=== PATIENT | female | born 1985 | race African-American/Black ===

== ENCOUNTER 2021-05-20 15:43 | Observation (INO) | payer MEDICAID, SELFPAY ==
--- NOTE | ~2021-05-20 | MR_ITS ---
EXAMINATION: MR hip RT wo con DATE: 05/21/2021 07:40 INDICATION: Right hip pain TECHNIQUE: Magnetic resonance imaging (MRI) of the right hip was performed without intravenous contr ast. Sequences included full-field axial PD-weighted FS FSE and T1-weighted FSE, coronal of the pelvi s with PD-weighted FS FSE, T2-weighted FSE and T1-weighted FSE, small field of view of the right hip with axial PD-weighted FS FSE, sagittal PD-weighted FS FSE, coronal PD-weighted FS FSE and coronal T2 weighted FSE. Additional radial T1-weighted FGR oriented orthogonal to the acetabular rim were obt ained for evaluation of the labrum. COMPARISON: CT dated 05/20/2021 FINDINGS: Bones/labrum/cartilage: Alignment is normal. No fracture, avascular necrosis or pathologic marrow replacing process. Smooth partial-thickness cleft at the base of the anterior left acetabular labrum most likely a normal subla bral sulcus, typical at this location but differential would include a small labral tear. Mild osteoa rthritis of the right hip with mild nonuniform partial thickness cartilage loss most prominent at the superior aspect of the joint space with mild subarticular edema at the superior acetabulum. Fluid: Symmetric physiologic amount of fluid within both hip joints. Soft tissues: Normal and symmetric muscle bulk and signal in the pelvis and visualized proximal thighs. The iliopso as, gluteal and proximal hamstring tendons are normal. 2.6 cm left ovarian cyst/follicle. A couple hy pointense uterine fibroids measuring 3.8 cm in the fundus and the smaller 2.1 cm subserosal fibroid a rising from the lower uterine segment. There is a small amount of free fluid in the pelvis with typic al simple high T2 fluid signal anteriorly but with heterogeneous decreased T2 and increased T1 signal in the cul-de-sac consistent with small amount of hemoperitoneum. No pathologically enlarged pelvic/ inguinal lymphadenopathy. IMPRESSION: 1. Mild right hip osteoarthritis with normal sulcus versus less likely small tear at the anterior lab rum. 2. Small amount of hemoperitoneum in the cul-de-sac which is of indeterminate etiology. 3. 2.6 cm left ovarian cyst/follicle. 4. Fibroid uterus. Reviewed, dictated and finalized at location A. IMPRESSION: 1. Mild right hip osteoarthritis with normal sulcus versus less likely small te ar at the anterior labrum. 2. Small amount of hemoperitoneum in the cul-de-sac which is of indeterminate e tiology. 3. 2.6 cm left ovarian cyst/follicle. 4. Fibroid uterus.
--- NOTE | ~2021-05-20 | CT_ITS ---
EXAMINATION: CT abdomen pelvis wo con DATE: 05/20/2021 19:25 INDICATION: Right abdominal pain. TECHNIQUE: Computed tomography (CT) of the abdomen and pelvis was performed without intravenous contr ast. Automated exposure control and iterative reconstruction technique were employed. The dose-length product was 243.86 mGy-cm. COMPARISON: None. FINDINGS: The visualized portions of the lung bases are clear without pneumonia or pleural effusion. The heart size is normal. No pericardial effusion. There is diffuse hepatic steatosis. The gallbladde r, spleen, pancreas, and adrenal glands are normal. There is a 2.3 cm cyst in right kidney. Left kidn ey is normal. There is no urolithiasis. There is a 2.7 cm dominant follicle in left ovary. There are no dilated loops of bowel. The appendix is normal. There are no pathologically enlarged lymph nodes. There is no free intraperitoneal fluid. There is mild osteoarthritis of the hips. There is mild lumba r spondylosis. IMPRESSION: 1. Diffuse hepatic steatosis. Reviewed, dictated and finalized at location A.
[2021-05-20 16:16] VITALS: BP 104/58; PULSE 76; RESP 16; TEMP 36.3; O2SAT 100
--- NOTE | 2021-05-20 16:34 | ED.GENADULT ---
HPI - General Adult General Chief complaint: Fall Stated complaint: fall 4-5 days ago, RT sided abd pain Time Seen by Provider: 05/20/21 16:22 Source: RN notes reviewed History of Present Illness HPI narrative: Patient presents emergency department from home for right-sided abdominal pain and hip pain. Patient states pain began when she fell out of bed approximately 1 week. States since that time she has had continued pain in her right lower abdomen states pain is worse with trying to ambulate or move move the right hip or stand up straight as well as pressing in the right lower abdomen pain is described as aching in nature she denies striking her head or any loss of consciousness she denies any chest pain shortness of breath nausea vomiting diarrhea or any other symptoms she states she not take any pain medication today. Patient states since the fall she has not been able to put any pressure onto the right hip Related Data Home Medications Medication Instructions Recorded Confirmed carbamazepine 400 mg PO BID 05/20/21 05/20/21 lisinopril-hydrochlorothiazide 1.5 tablet PO DAILY 05/20/21 05/20/21 tizanidine 4 mg PO TID PRN 05/20/21 05/20/21 Allergies Allergy/AdvReac Type Severity Reaction Status Date / Time amoxicillin Allergy Anaphylaxis Verified 05/20/21 23:35 iodine Allergy Anaphylaxis Verified 05/20/21 23:35 latex Allergy Rash Verified 05/20/21 23:35 Penicillins Allergy Anaphylaxis Verified 05/20/21 23:35 Review of Systems Review of Systems: Gen.: Denies fevers or chills Eyes: Denies eye pain or visual change ENT: Denies congestion Respiratory: Denies shortness of breath or cough CV: Denies chest pain or palpitations GI: See HPI Musculoskeletal: Denies back pain or muscle pain Neuro: Denies numbness, tingling, weakness or focal weakness Skin: Denies rash Except as documented, all other systems reviewed and negative [facility] [place] Past Medical History Medical History (Updated 05/21/21 @ 01:05 by Clarence Ko DO) Alcohol abuse Seizures Family History Family History (Updated 05/20/21 @ 23:47 by Yaritza Tiwari RN) Grandparent Cancer Other Hypertension Social History Social History (Updated 05/20/21 @ 23:18 by Maryuri Gutierrez DO) Social History: Primary care physician: Dr. Milo Haq Smoking status: Current every day smoker Smokeless tobacco user: chewing tobacco Alcohol intake: current Drinks per week: 3 Substance use: current Substance use type: crack/cocaine Spiritual care concerns: No Exam Narrative: APPEARANCE: No acute distress, nontoxic, resting in bed HEENT: Normocephalic, atraumatic, OMM RESPIRATORY: No respiratory distress, clear to auscultation bilaterally with no rhonchi wheezing or rales CARDIOVASCULAR: RRR s murmur ABDOMINAL: Soft nondistended diffusely tender to palpation with increased tenderness in the right lower quadrant no rebound or guarding MUSCULOSKELETAl: Moves all extremities. No clubbing, cyanosis or edema. Tender to palpation of the right anterior and lateral right hip pain with any movement of the right hip no tenderness of the right knee or ankle dorsalis pedis pulse 2+ neurovascular intact NEURO: Awake and alert x 4. Following commands, speech normal, no focal deficits SKIN:: Warm, dry. Normal Color PSYCHIATRIC: Normal affect/mood Course Course Emergency Course: Attempted to get patient up and ambulate still unable to place any weight on the right hip Patient initially been a difficult stick and refused any further IV lab draw as her CT scan was without contrast because of iodine allergy no further lab redraw as had occurred however after the patient had continued pain unable to walk I discussed with the patient we did draw further lab work at this time it was discovered the patient was hypoglycemic she states she had eaten today she was awake and alert the patient was given food in the emergency department and repeat lab continue to sh
[2021-05-20 18:35] LABS: Basophils Absolute Auto 0.1 K/mm3 (0.0-0.1); Basophils Percent Auto 0.7 % (0.2-1.2); Hematocrit 41.9 % (37.0-47.0); Hemoglobin 14.2 g/dL (12.0-15.0); Immature Granulocyte Absolute 0.02 K/mm3 (0.00-0.031); Immature Granulocyte Percent A 0.2 % (0-0.5); Lymphocytes Absolute Auto 1.07 K/mm3 (0.9-3.2); Lymphocytes Percent Auto 11.8 % (18.3-44.2); Mean Corpuscular HGB Conc 33.9 g/dl (32-36); Mean Corpuscular Hemoglobin 32.6 pg (26-34); Mean Corpuscular Volume 96.1 fl (80-100); Mean Platelet Volume 12.2 fl (7.4-10.4); Monocytes Absolute Auto 0.3 K/mm3 (0.1-0.6); Monocytes Percent Auto 3.5 % (2.6-8.5); Neutrophils Absolute Auto 7.6 K/mm3 (1.3-6.7); Neutrophils Percent Auto 83.8 % (45.5-73.1); Platelet Count Result 166 k/mm3 (150-375); Red Blood Count 4.36 M/mm3 (4.2-5.4); Red Cell Distribution Width 14.7 % (11.5-14.5); White Blood Count 9.1 K/mm3 (4.5-10.0)
[2021-05-20] MEDS: SODIUM CHLORIDE 0.9% IV 1,000 ML 999 ML IV CONT ×2 (18:40→21:42)
--- NOTE | 2021-05-20 19:06 | PC.NURSE ---
Pt refused redraw of chemistry and coag bloodwork after hemolysis rejection. Dr. Ko made aware
[2021-05-20 19:12] LABS: Add Urine Microscopic? YES; Appearance Urine Clear (Clear); Bilirubin Urine Negative (Negative); Blood Urine Negative (Negative); Color Urine Yellow (Yellow); Glucose Urine UA Negative (Negative); Ketones Urine 2+ mg/dL (Negative); Leukocyte Esterase Ur Negative LEU/UL (Negative); Mucus Urine Rare /lpf; Nitrate Urine Negative (Negative); Protein Urine 2+ mg/dL (Negative); RBC Urine 0-2 /hpf (0-2); Specific Grav Ur 1.019 (1.001-1.035); Squamous Epithelial Cell Urine Occasional /hpf (Few); Urobilinogen Urine Negative mg/dL (<2.0); WBC Urine 0-3 /hpf
[2021-05-20] MEDS: MORPHINE SULFATE (*CRX) 2 MG/ML INJ IV PUSH ×2 (19:59→20:43)
[2021-05-20] MEDS: ONDANSETRON INJ 4 MG/2 ML VIAL IV PUSH (20:06)
--- NOTE | 2021-05-20 20:46 | PC.NURSE ---
phlebotomy called at this time.
[2021-05-20 21:06] LABS: Prothrombin Time 12.6 Seconds (11.1-14.7)
[2021-05-20 21:09] LABS: Alanine Aminotransferase 46 U/L (4-35); Alkaline Phosphatase 82 U/L (38-126); Anion Gap 25 mmol/L (8-16); Aspartate Amino Transferase 100 U/L (14-36); Bilirubin,Total 1.6 mg/dL (0.2-1.3); Blood Urea Nitrogen 9 mg/dL (7-17); Calcium 8.8 mg/dL (8.4-10.2); Carbon Dioxide 13 mmol/L (22-30); Chloride 98 mmol/L (98-107); Estimated CRCL calculation 66 ml/min; Estimated Glomerular Filt Rate > 60; Glucose 46 mg/dL (65-110); Lipase 141 U/L (23-300); Potassium 3.7 mmol/L (3.4-5.0); Sodium 136 mmol/L (137-145)
--- NOTE | 2021-05-20 21:09 | PC.NURSE ---
erp dr shah notified of bs 46- pepsi and pb and crackers taken to the room at this time.
[2021-05-20 21:25] VITALS: BP 145/89; PULSE 87; RESP 16; O2SAT 97
[2021-05-20 21:35] LABS: Glucose Point of Care 34 mg/dl (65-105)
[2021-05-20] MEDS: DEXTROSE 50% 25 GM/50 ML SYRINGE IV PUSH (21:39)
[2021-05-20] MEDS: THIAMINE HCL 200 MG/2 ML VIAL 100 MG IV PUSH (22:11)
[2021-05-20 22:12] LABS: Ethanol 93 mg/dL (<10)
[2021-05-20 22:23] LABS: Glucose Point of Care 150 mg/dl (65-105)
[2021-05-20 22:41] LABS: Amphetamine Screen Urine Negative (Negative); Barbiturate Screen Urine Negative (Negative); Benzodiazepines Screen Urine Negative (Negative); Cannabinoid Screen Urine Negative (Negative); Cocaine Screen Urine Positive (Negative); Methadone Screen Urine Negative (Negative); Opiate Screen Urine Negative (Negative); Phencyclidine Screen Urine Negative (Negative)
[2021-05-20 22:47] LABS: Glucose Point of Care 117 mg/dl (65-105)
[2021-05-20 22:49] LABS: Lactic Acid Reflex 3.1 mmol/L (0.7-2.1)
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
--- NOTE | 2021-05-20 23:20 | ADMGEN ---
This patient, Sebastian Negrete, was admitted to Medical Room 342-01. Patient/family oriented to hospital policies and general routines including ID bracelet, bed and alarms, visiting hours, pain management, procedures, bathroom and other care routines, personal items, smoking policy, room service/diet, and visiting hours. Information on how to activate the Rapid Response Team has been discussed. Patient/Family are encouraged to report perceived risks to care and to ask questions if they do not understand what they are told or what they should do.
[2021-05-20] MEDS: DEXTROSE 5%/0.9% SOD CHL 1,000 ML 100 ML IV CONT (23:31)
[2021-05-21] MEDS: HYDROcodone/acetaminophen (*CRX) 5-325 MG TABLET 1 TAB PO ×4 (00:03→21:34)
--- NOTE | 2021-05-21 00:17 | PC.NURSE ---
Patient unable to recall home medication dosage and frequency for her levothyroxine and nebulizer. Patient's mother will call her in the morning with correct information.
[2021-05-21 00:28] LABS: Glucose Point of Care 68 mg/dl (65-105)
[2021-05-21 00:30] VITALS: BP 153/79; PULSE 69; RESP 21; TEMP 36.7; O2SAT 100
--- NOTE | 2021-05-21 00:48 | PC.NURSE ---
Initial blood sugar check was 68. Gave pt two juices to drink and rechecked 15 minutes later and the result was 82.
[2021-05-21 00:52] LABS: Glucose Point of Care 82 mg/dl (65-105)
[2021-05-21 01:37] LABS: Reflex Lactic Acid Yes or No Add Lactic
[2021-05-21 02:35] LABS: Glucose Point of Care 94 mg/dl (65-105)
[2021-05-21 02:48] LABS: Basophils Absolute Auto 0.1 K/mm3 (0.0-0.1); Basophils Percent Auto 0.6 % (0.2-1.2); Eosinophils Percent Auto 0.1 % (0-4.4); Hematocrit 33.9 % (37.0-47.0); Hemoglobin 11.7 g/dL (12.0-15.0); Immature Granulocyte Absolute 0.03 K/mm3 (0.00-0.031); Immature Granulocyte Percent A 0.3 % (0-0.5); Immature Platelet Fraction Pct 12.6 % (0.9-11.2); Lymphocytes Absolute Auto 2.36 K/mm3 (0.9-3.2); Lymphocytes Percent Auto 24.4 % (18.3-44.2); Mean Corpuscular HGB Conc 34.5 g/dl (32-36); Mean Corpuscular Hemoglobin 33.1 pg (26-34); Monocytes Absolute Auto 0.5 K/mm3 (0.1-0.6); Neutrophils Absolute Auto 6.7 K/mm3 (1.3-6.7); Neutrophils Percent Auto 69.6 % (45.5-73.1); Platelet Count Result 123 k/mm3 (150-375); Red Blood Count 3.53 M/mm3 (4.2-5.4); Red Cell Distribution Width 14.3 % (11.5-14.5); White Blood Count 9.7 K/mm3 (4.5-10.0)
[2021-05-21 02:56] LABS: Lactic Acid 1.1 mmol/L (0.7-2.1)
[2021-05-21 02:57] LABS: Alanine Aminotransferase 48 U/L (4-35); Albumin Level 4.9 g/dL (3.5-5.1); Alkaline Phosphatase 78 U/L (38-126); Anion Gap 19 mmol/L (8-16); Aspartate Amino Transferase 95 U/L (14-36); Bilirubin,Total 1.9 mg/dL (0.2-1.3); Blood Urea Nitrogen 8 mg/dL (7-17); Carbon Dioxide 17 mmol/L (22-30); Chloride 96 mmol/L (98-107); Estimated CRCL calculation 73 ml/min; Estimated Glomerular Filt Rate > 60; Glucose 92 mg/dL (65-110); Magnesium 1.4 mg/dL (1.6-2.3); Phosphorus 2.8 mg/dL (2.5-4.5); Potassium 3.6 mmol/L (3.4-5.0); Sodium 132 mmol/L (137-145)
[2021-05-21 02:59] LABS: Cholesterol 303 mg/dL (0-200); Triglycerides 114 mg/dL (<150)
[2021-05-21 03:06] LABS: LDL Cholesterol Direct 144 mg/dL
[2021-05-21 03:13] LABS: HDL Direct 122 mg/dL
[2021-05-21 03:18] LABS: Hemoglobin A1C 4.4 % (<5.7)
[2021-05-21 04:23] LABS: Glucose Point of Care 83 mg/dl (65-105)
[2021-05-21 06:00] VITALS: BP 146/84; PULSE 72; RESP 21; TEMP 36.6; O2SAT 100
--- NOTE | 2021-05-21 06:24 | PC.NURSE ---
Patient down to radiology for MRI via wheelchair.
[2021-05-21 06:26] LABS: Glucose Point of Care 79 mg/dl (65-105)
[2021-05-21] MEDS: MAGNESIUM SULF 2 GM/WATER 50ML 2 GM/50 ML BAG IVPB (07:54)
--- NOTE | 2021-05-21 08:46 | PM.CNOR ---
Assessment and Plan Additional Plan Presentation and imaging most c/w contussion of gr troch and symphsis. OK to mobilize as tolerated WBAT will F/U in my office within 10 days of d/c Some OA seen in this young female very unlikely labral tear but unlikely acute History of Present Illness HPI Consult date: 05/21/21 Chief complaint: R hip pain, Hypoglycemia PMFSH Past Medical History Medical History (Updated 05/21/21 @ 07:03 by Maryuri Gutierrez DO) Alcohol abuse Asthma Essential hypertension Seizures Surgical History Surgical History (Updated 05/21/21 @ 07:06 by Maryuri Gutierrez DO) No significant past surgical history Family History Family History (Updated 05/21/21 @ 07:07 by Maryuri Gutierrez DO) Grandparent Cancer Mother Hypertension Obesity Sibling Obesity Social History Social History (Updated 05/21/21 @ 07:11 by Maryuri Gutierrez DO) Social History: She lives on her own but her mother states with her intermittently. She has a small dog and 5 birds. She chews tobacco daily approximately 1/4 can. She drinks a bloody Chayo a couple of times a week and binge drinks a couple of times a month. She reports that when she does binge drink she usually drinks about a 5th of vodka or more. She uses recreational cocaine. 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 Surrogate decision maker: Himanshu Linares (mother) Smokeless tobacco user: chewing tobacco Alcohol intake: current Drinks per week: 3 Substance use: current Substance use type: crack/cocaine Spiritual care concerns: No Meds Home Medications and Allergies Home Medications Medication Instructions Recorded Confirmed Type carbamazepine 400 mg PO BID 05/20/21 05/20/21 History lisinopril-hydrochlorothiazide 1.5 tablet PO DAILY 05/20/21 05/20/21 History tizanidine 4 mg PO TID PRN 05/20/21 05/20/21 History Allergies Allergy/AdvReac Type Severity Reaction Status Date / Time amoxicillin Allergy Anaphylaxis Verified 05/20/21 23:35 iodine Allergy Anaphylaxis Verified 05/20/21 23:35 latex Allergy Rash Verified 05/20/21 23:35 Penicillins Allergy Anaphylaxis Verified 05/20/21 23:35 Vital Signs Vital Signs - 24 hr 05/20/21 16:16 05/20/21 21:25 05/21/21 00:30 Temperature 36.3 C L 36.7 C Pulse Rate 76 87 69 Respiratory Rate 16 16 21 H Blood Pressure 104/58 L 145/89 H 153/79 H Pulse Oximetry 100 97 100 05/21/21 06:00 Temperature 36.6 C Pulse Rate 72 Respiratory Rate 21 H Blood Pressure 146/84 H Pulse Oximetry 100 Exam Extrem: Other: Right hip and pelvis Nontender to log roll mild tender to symphysis area Add of hip min pain to this area Gr troch tender to palp NV intact distally thigh supple and NT Calves NT and supple bilat. imaging- neg for acute hip or pelvis fx Results Labs Result Diagrams: 05/21/21 02:38 05/21/21 02:38 Labs: Abnormal lab results 05/20/21 05/20/21 05/20/21 Range/Units 18:27 18:56 20:52 RBC (4.2-5.4) M/mm3 Hgb (12.0-15.0) g/dL Hct (37.0-47.0) % RDW 14.7 H (11.5-14.5) % Plt Count (150-375) k/mm3 MPV 12.2 H (7.4-10.4) fl Neut % (Auto) 83.8 H (45.5-73.1) % Lymph % (Auto) 11.8 L (18.3-44.2) % Absolute Neuts (auto) 7.6 H (1.3-6.7) K/mm3 % Immature Plt Fraction (0.9-11.2) % Sodium 136 L (137-145) mmol/L Chloride (98-107) mmol/L Carbon Dioxide 13 L (22-30) mmol/L Anion Gap 25 H (8-16) mmol/L Glucose 46 L* (65-110) mg/dL POC Capillary Glucose (65-105) mg/dl Lactic Acid (0.7-2.1) mmol/L Magnesium (1.6-2.3) mg/dL Total Bilirubin 1.6 H (0.2-1.3) mg/dL AST 100 H (14-36) U/L ALT 46 H (4-35) U/L Cholesterol (0-200) mg/dL Urine Protein 2+ H (Negative) mg/dL Urine Ketones 2+ H (Negative) mg/dL Hyaline Casts 3-4 H (None) /lpf Urine Cocaine Screen (Negative)
[2021-05-21 09:05] LABS: Glucose Point of Care 89 mg/dl (65-105)
[2021-05-21] MEDS: THIAMINE HCL 100 MG TABLET PO (09:30)
[2021-05-21] MEDS: FOLIC ACID 0.4 MG TABLET PO (09:30)
[2021-05-21] MEDS: MULTIVITAMINS THERAPEUTIC TAB (*BKC) 1 TABLET PO (09:30)
[2021-05-21] MEDS: hydroCHLOROthiazide 12.5 MG CAPSULE 37.5 MG PO (09:30)
[2021-05-21] MEDS: CARBAMAZEPINE XR 200 MG TAB.ER.12H 400 MG PO ×2 (09:31→16:54)
[2021-05-21] MEDS: lisinopriL 10 MG TABLET 30 MG PO (09:31)
[2021-05-21] MEDS: SODIUM CHLORIDE 0.9% IV 1,000 ML 50 ML IV CONT (10:45)
--- NOTE | 2021-05-21 10:59 | PM.IMPN ---
Progress Note: A&P Assessment and Plan (1) Alcoholic ketosis: Code(s): E88.89 - Other specified metabolic disorders Status: Acute Assessment and Plan: Incidentally the patient was found to have low serum bicarb, lactic acidosis, hypoglycemia and transaminitis. Has history of chronic alcohol abuse and her clinical picture fits with alcoholic ketosis with associated hypoglycemia. A component of her acidosis could also be due to starvation ketosis and she had not had anything to eat for almost 24 hours. It also seems the patient has a chronic low calorie diet with eating a solid in a smoothie and not much else. Patient's glucoses did improved to 150 after her eating a large meal in the ER. However repeat glucose was trending back downward. Patient has been initiated on IV fluids D5 normal saline at 100 an hour. She did received 2 L normal saline bolus in the ER. The patient received thiamine supplementation in the ER as well. The patient has evidence of hepatic steatosis on CT likely due to her chronic alcohol abuse. The importance of alcohol cessation has been discussed with the patient. Will monitor the patient for signs of alcohol withdrawal. Her hypoglycemia is likely due to her alcoholism and low nutritional state. However will check hemoglobin A1c to rule underlying chronic derangement. -NSD5 slowed to 75ml/hr, glucose 92 this morning -Added NS @ 50ml/hr to correct hyponatremia -Added thiamine and folate supplementation as well as multi vitamin -Librium prn (2) Hypoglycemia: Code(s): E16.2 - Hypoglycemia, unspecified Status: Acute Assessment and Plan: -NSD5 slowed to 75ml/hr, glucose 92 this morning -Discussed importance of eating, pt admits to only nibbling at breakfast. States will try to eat more at lunch. (3) Right hip pain: Code(s): M25.551 - Pain in right hip Status: Acute Assessment and Plan: -R hip pain s/p fall from bed 4 days ago, unsure of mechanism -normal XR, MRI ordered per ortho - :1. Mild right hip osteoarthritis with normal sulcus versus less likely small tear at the anterior labrum. 2. Small amount of hemoperitoneum in the cul-de-sac which is of indeterminate etiology. 3. 2.6 cm left ovarian cyst/follicle. 4. Fibroid uterus -Ortho consulted, states imaging most consistent with contusion of greater trochanter, states okay to mobilize as tolerated and bear weight as tolerated. Pt will follow up outpatient within 10 days of discharge. (4) Transaminitis: Code(s): R74.01 - Elevation of levels of liver transaminase levels Status: Acute Assessment and Plan: As above (5) Alcohol intoxication: Code(s): F10.929 - Alcohol use, unspecified with intoxication, unspecified Status: Acute Assessment and Plan: Discussed at length the importance of alcohol cessation. Social work consulted, resources provided. Additional Plan Patient re-presented with right abdominal pain and right hip pain. She is unable to bear weight. Patient has CT scan of the abdomen pelvis that did not demonstrate acute fracture. Orthopedic surgery has been consulted and recommends an MRI of the right hip to rule out occult fracture. [place] has been ordered for pain. Incidentally the patient was found to have low serum bicarb, lactic acidosis, hypoglycemia and transaminitis. Has history of chronic alcohol abuse and her clinical picture fits with alcoholic ketosis with associated hypoglycemia. A component of her acidosis could also be due to starvation ketosis and she had not had anything to eat for almost 24 hours. It also seems the patient has a chronic low calorie diet with eating a solid in a smoothie and not much else. Patient's glucoses did improved to 150 after her eating a large meal in the ER. However repeat glucose was trending back downward. Patient has been initiated on IV fluids D5 normal saline at 100 an hour. She did received
[2021-05-21 11:58] LABS: Glucose Point of Care 106 mg/dl (65-105)
[2021-05-21 14:00] VITALS: BP 140/71; PULSE 62; RESP 18; TEMP 37; O2SAT 100
[2021-05-21] MEDS: DEXTROSE 5%/0.9% SOD CHL 1,000 ML 75 ML IV CONT (16:25)
[2021-05-21 17:28] LABS: Glucose Point of Care 98 mg/dl (65-105)
[2021-05-21] MEDS: chlordiazePOXIDE (*CRX) 25 MG CAPSULE PO (20:11)
[2021-05-21 20:49] LABS: Glucose Point of Care 103 mg/dl (65-105)
[2021-05-21 20:53] VITALS: PULSE 62; RESP 18; O2SAT 100
[2021-05-21 21:56] VITALS: BP 142/89; PULSE 69; RESP 18; TEMP 36.5; O2SAT 100
[2021-05-22 00:06] LABS: Glucose Point of Care 84 mg/dl (65-105)
[2021-05-22] MEDS: chlordiazePOXIDE (*CRX) 25 MG CAPSULE PO (04:32)
[2021-05-22 04:42] LABS: Glucose Point of Care 71 mg/dl (65-105)
[2021-05-22] MEDS: DEXTROSE 5%/0.9% SOD CHL 1,000 ML 75 ML IV CONT (05:47)
[2021-05-22] MEDS: SODIUM CHLORIDE 0.9% IV 1,000 ML 50 ML IV CONT (05:47)
[2021-05-22 06:00] VITALS: BP 127/74; PULSE 67; RESP 16; TEMP 35.9; O2SAT 100
[2021-05-22 06:44] LABS: Hematocrit 33.2 % (37.0-47.0); Hemoglobin 11.6 g/dL (12.0-15.0); Mean Corpuscular HGB Conc 34.9 g/dl (32-36); Mean Corpuscular Volume 97.4 fl (80-100); Mean Platelet Volume 12.5 fl (7.4-10.4); Platelet Count Result 80 k/mm3 (150-375); Red Blood Count 3.41 M/mm3 (4.2-5.4); Red Cell Distribution Width 13.2 % (11.5-14.5); White Blood Count 3.4 K/mm3 (4.5-10.0)
[2021-05-22 07:32] LABS: Anion Gap 9 mmol/L (8-16); Blood Urea Nitrogen 4 mg/dL (7-17); Calcium 8.9 mg/dL (8.4-10.2); Carbon Dioxide 23 mmol/L (22-30); Chloride 101 mmol/L (98-107); Estimated CRCL calculation 82 ml/min; Estimated Glomerular Filt Rate > 60; Glucose 100 mg/dL (65-110); Magnesium 1.5 mg/dL (1.6-2.3); Sodium 133 mmol/L (137-145)
[2021-05-22 08:03] LABS: Glucose Point of Care 92 mg/dl (65-105)
[2021-05-22] MEDS: hydroCHLOROthiazide 12.5 MG CAPSULE 37.5 MG PO (08:38)
[2021-05-22] MEDS: lisinopriL 10 MG TABLET 30 MG PO (08:39)
[2021-05-22] MEDS: MULTIVITAMINS THERAPEUTIC TAB (*BKC) 1 TABLET PO (08:39)
[2021-05-22] MEDS: FOLIC ACID 0.4 MG TABLET PO (08:39)
[2021-05-22] MEDS: CARBAMAZEPINE XR 200 MG TAB.ER.12H 400 MG PO (08:39)
[2021-05-22] MEDS: THIAMINE HCL 100 MG TABLET PO (08:39)
--- NOTE | 2021-05-22 10:09 | PM.DS ---
DS: Admitting Diagnosis Discharge Date 05/22/21 Admitting Diagnosis Hip pain, alcoholic ketosis DS: Discharge Diagnosis Discharge Diagnosis (1) Alcoholic ketosis: Code(s): E88.89 - Other specified metabolic disorders Status: Acute Assessment and Plan: Incidentally the patient was found to have low serum bicarb, lactic acidosis, hypoglycemia and transaminitis. Has history of chronic alcohol abuse and her clinical picture fits with alcoholic ketosis with associated hypoglycemia. A component of her acidosis could also be due to starvation ketosis and she had not had anything to eat for almost 24 hours. It also seems the patient has a chronic low calorie diet with eating a solid in a smoothie and not much else. Patient's glucoses did improved to 150 after her eating a large meal in the ER. However repeat glucose was trending back downward. Patient has been initiated on IV fluids D5 normal saline at 100 an hour. She did received 2 L normal saline bolus in the ER. The patient received thiamine supplementation in the ER as well. The patient has evidence of hepatic steatosis on CT likely due to her chronic alcohol abuse. The importance of alcohol cessation has been discussed with the patient. Will monitor the patient for signs of alcohol withdrawal. Her hypoglycemia is likely due to her alcoholism and low nutritional state. However will check hemoglobin A1c to rule underlying chronic derangement. -NSD5 slowed to 75ml/hr, glucose 92 this morning -Added NS @ 50ml/hr to correct hyponatremia -Added thiamine and folate supplementation as well as multi vitamin -Librium prn -Labs improved today. Anion gap closed. Glucose improved -- pt is also attempting to eat more. Potassium and magnesium supplemented. Discussed at length need for cessation of alcohol. Pt was also evaluted by social work who provided resources. Will plan to send patient home w/ thiamine, folate, multi vitamin. (2) Abdominal pain, right lower quadrant: Code(s): R10.31 - Right lower quadrant pain Status: Acute Assessment and Plan: RLQ pain was initially suspected to be radiation of the R hip pain. MRI showed fibroid uterus and L ovarian cyst. Abdominal pain and tenderness was improved today. Discussed follow up with OBGYN for outpatient pelvic ultrasound to further evaluate the fibroids/ovarian cysts, and possibly evaluation for endometriosis. (3) Hypoglycemia: Code(s): E16.2 - Hypoglycemia, unspecified Status: Acute Assessment and Plan: -NSD5 slowed to 75ml/hr, glucose 92 this morning -Discussed importance of eating, pt admits to only nibbling at breakfast. States will try to eat more at lunch. -Glucose this morning 100. Patient is eating better. NSD5 was stopped. She has not had another hypoglycemic episode since admission to the floor. Discussed importance of eating well. Pt was agreeable. (4) Alcohol intoxication: Code(s): F10.929 - Alcohol use, unspecified with intoxication, unspecified Status: Acute Assessment and Plan: Discussed at length the importance of alcohol cessation. Social work consulted, resources provided. (5) Transaminitis: Code(s): R74.01 - Elevation of levels of liver transaminase levels Status: Acute Assessment and Plan: As above (6) Right hip pain: Code(s): M25.551 - Pain in right hip Status: Acute Assessment and Plan: -R hip pain s/p fall from bed 4 days ago, unsure of mechanism -normal XR, MRI ordered per ortho - :1. Mild right hip osteoarthritis with normal sulcus versus less likely small tear at the anterior labrum. 2. Small amount of hemoperitoneum in the cul-de-sac which is of indeterminate etiology. 3. 2.6 cm left ovarian cyst/follicle. 4. Fibroid uterus -Ortho consulted, states imaging most consistent with contusion of greater trochanter, states okay to mobilize as tolerated and be
[2021-05-22] MEDS: POTASSIUM CHLORIDE 20 MEQ TABLET 40 MEQ PO (10:28)
[2021-05-22] MEDS: MAGNESIUM OXIDE 400 MG TABLET PO (10:29)
--- NOTE | 2021-05-22 11:45 | PM.PNORT ---
Progress Note: A&P Additional Plan Cont to mobilize as tolerated OK for D/C from Ortho POV F/U with leb within 10 days of d/c Subjective Subjective Date/Time Seen: 05/22/21 11:45 Interval history: Pt states she has been up and walking out of bed with right hip pain (greater troch) Exam Extrem: Other: Right Hip Palp of gr troch tender log roll NT Flex to 90 NT NV intact distally Calves supple and NT Objective Data Vital Signs Vital Signs: Vital Signs - 24 hr 05/21/21 14:00 05/21/21 20:53 05/21/21 21:56 Temperature 37.0 C 36.5 C Pulse Rate 62 62 69 Respiratory Rate 18 18 18 Blood Pressure 140/71 142/89 H Pulse Oximetry 100 100 100 05/22/21 06:00 Temperature 35.9 C L Pulse Rate 67 Respiratory Rate 16 Blood Pressure 127/74 Pulse Oximetry 100 Intake/Output Intake/Output: Intake & Output 05/19/21 05/20/21 05/21/21 05/22/21 23:59 23:59 23:59 23:59 Intake Total 2100 1850 2540 Output Total 1900 Balance 2100 -50 2540 Meds/Results Medications: Active Medications Generic Name Dose Route Start Last Admin Trade Name Freq PRN Reason Stop Dose Admin Hydrocodone Bitart/Acetaminophen 1 tab 05/20/21 23:18 05/21/21 21:34 Hydrocodone/Acetaminophen (*Crx) 5-325 Mg Tablet PO 1 tab Q6H PRN Administration Pain Rated 4-6 Carbamazepine 400 mg 05/21/21 08:00 05/22/21 08:39 Carbamazepine Xr 200 Mg Tab.Er.12h PO 400 mg BIDWM KARI Administration Chlordiazepoxide HCl 25 mg 05/21/21 08:29 05/22/21 04:32 Chlordiazepoxide (*Crx) 25 Mg Capsule PO 25 mg Q8H PRN Administration Anxiety Dextrose 12.5 gm 05/21/21 02:21 Dextrose 50% 25 Gm/50 Ml Syringe IV PUSH PRN PRN Hypoglycemia Protocol Folic Acid 0.4 mg 05/21/21 09:00 05/22/21 08:39 Folic Acid 0.4 Mg Tablet PO 0.4 mg DAILY KARI Administration Glucagon 1 mg 05/21/21 02:21 Glucagon For Inj 1 Mg Vial IM PRN PRN Hypoglycemia Protocol Glucose 15 gm 05/21/21 02:21 Glucose Oral Gel 15 Gm Of Glucse In 37.5 Gm Tube PO PRN PRN Hypoglycemia Protocol Hydrochlorothiazide 37.5 mg 05/21/21 09:00 05/22/21 08:38 Hydrochlorothiazide 12.5 Mg Capsule PO 37.5 mg QAM KARI Administration Dextrose 1,000 mls @ 100 mls/hr 05/21/21 02:21 Dextrose 5% 1,000 Ml IVPB PRN PRN Hypoglycemia Protocol Lisinopril 30 mg 05/21/21 09:00 05/22/21 08:39 Lisinopril 10 Mg Tablet PO 30 mg QAM KARI Administration Magnesium Oxide 400 mg 05/22/21 09:40 05/22/21 10:29 Magnesium Oxide 400 Mg Tablet PO 400 mg DAILY KARI Administration Multivitamins Therapeutic 1 tablet 05/21/21 09:00 05/22/21 08:39 Multivitamins Therapeutic Tab (*Bkc) PO 1 tablet QAM KARI Administration Thiamine HCl 100 mg 05/21/21 09:00 05/22/21 08:39 Thiamine Hcl 100 Mg Tablet PO 100 mg QAM KARI Administration Radiology Results: ITS Impressions Abdomen/Pelvis CT 05/20/21 19:27 IMPRESSION: 1. Diffuse hepatic steatosis. Hip MRI 05/21/21 08:10 IMPRESSION: 1. Mild right hip osteoarthritis with normal sulcus versus less likely small tear at the anterior labrum. 2. Small amount of hemoperitoneum in the cul-de-sac which is of indeterminate etiology. 3. 2.6 cm left ovarian cyst/follicle. 4. Fibroid uterus. Labs Labs: Laboratory Results - last 24 hr 05/21/21 05/21/21 05/21/21 11:49 16:28 20:33 WBC RBC Hgb Hct MCV MCH MCHC RDW Plt Count MPV Sodium Potassium Chloride Carbon Dioxide Anion Gap BUN Creatinine Estim Creat Clear Calc Estimated GFR Glucose POC Capillary Glucose 106 H 98 103 Calcium Magnesium 05/22/21 05/22/21 05/22/21 00:03 04:32 06:24 WBC 3.4 L RBC 3.41 L Hgb 11.6 L Hct 33.2 L MCV 97.4 MCH 34.0 MCHC 34.9 RDW 13.2 Plt Count 80 L MPV 12.5 H Sodium Potassium Chloride Car
[2021-05-22 12:22] LABS: Glucose Point of Care 91 mg/dl (65-105)
== END 2021-05-22 14:15 | disposition home or self-care (01) ==
LOC: ANHED 16:39 → ANH3MED 22:45
PROVIDERS: Physician Assistant; Admitting Provider Internal Medicine; Emergency Provider Emergency Medicine; PCP Family Medicine; Visit Provider Internal Medicine
DX: M25.551 Pain in right hip (principal); R10.31 Right lower quadrant pain; E88.89 Other specified metabolic disorders; F10.10 Alcohol abuse, uncomplicated; E16.2 Hypoglycemia, unspecified; R74.01 Elevation of levels of liver transaminase levels; F17.290 Nicotine dependence, other tobacco product, uncomplicated; G40.909 Epilepsy, unspecified, not intractable, without status epilepticus; M16.11 Unilateral primary osteoarthritis, right hip; N83.202 Unspecified ovarian cyst, left side; W06.XXXA Fall from bed, initial encounter
CPT/HCPCS: 36415; 73721; 74176; 80048; 80053; 80061; 80307; 81001; 81025; 82948; 83036; 83605; 83690; 83735; 84100; 85025; 85027; 85055; 85610; 85730; 96361; 96365; 96374; 96375; 96376; 99285; A9270; G0378; G0379; J0131; J2270; J2405; J3411; J3475; J7030; J7042

== ENCOUNTER 2021-07-08 13:17 | Emergency (ER) | payer MEDICAID, SELFPAY ==
[2021-07-08] VITALS (18 sets, daily range): BP systolic 133–153; BP diastolic 82–99; PULSE 82–125; RESP 13–24; O2SAT 96–100
[2021-07-08 13:27] LABS: Glucose Point of Care 63 mg/dl (65-105)
[2021-07-08] MEDS: DEXTROSE 50% 25 GM/50 ML SYRINGE IV PUSH (13:27)
--- NOTE | 2021-07-08 13:50 | ECG_ITS ---
Measurements Intervals [place] Rate: 101 P: 78 RI: 135 QRS: 79 QRSD: 89 T: 103 QT: 401 QTc: 521 Interpretive Statements SINUS TACHYCARDIA DELAYED PRECORDIAL R/S TRANSITION BORDERLINE ST-T WAVE ABNORMALITY- INF/HIGH LAT LEADS BASELINE ARTIFACT- II, V1, V4-V6 BORDERLINE ECG Electronically Signed On 07-08-2021 16:15:34 BRICKLAYER HELPER by Oneil Herrera D.O.
[2021-07-08 14:03] LABS: Basophils Absolute Auto 0.1 K/mm3 (0.0-0.1); Basophils Percent Auto 1.5 % (0.2-1.2); Hemoglobin 12.9 g/dL (12.0-15.0); Immature Granulocyte Absolute 0.02 K/mm3 (0.00-0.031); Immature Granulocyte Percent A 0.3 % (0-0.5); Lymphocytes Absolute Auto 2.55 K/mm3 (0.9-3.2); Lymphocytes Percent Auto 42.7 % (18.3-44.2); Mean Corpuscular HGB Conc 34.9 g/dl (32-36); Mean Corpuscular Hemoglobin 32.5 pg (26-34); Mean Corpuscular Volume 93.2 fl (80-100); Mean Platelet Volume 9.9 fl (7.4-10.4); Monocytes Absolute Auto 0.3 K/mm3 (0.1-0.6); Monocytes Percent Auto 4.4 % (2.6-8.5); Neutrophils Absolute Auto 3.1 K/mm3 (1.3-6.7); Neutrophils Percent Auto 51.1 % (45.5-73.1); Platelet Count Result 372 k/mm3 (150-375); Red Blood Count 3.97 M/mm3 (4.2-5.4); Red Cell Distribution Width 12.9 % (11.5-14.5)
--- NOTE | 2021-07-08 14:06 | ED.GENADULT ---
HPI - General Adult General Chief complaint: Seizure Stated complaint: Seizure. Time Seen by Provider: 07/08/21 13:24 History of Present Illness HPI narrative: Patient is a 36-year-old female who presents ER with reports of alcohol abuse and seizure. Patient came in through the front doors of the building and then it was reported that she had a seizure upon reaching the triage desk. My evaluation of her she is alert and oriented x3. She smells of alcohol. There is no postictal period. Patient is unable to give the name of her antiepileptics at this time. She reports that she is recently moved from [facility] here, she has not been eating food over the last couple days and has only been consuming vodka. She reports she has not taken any of her anticonvulsant medication over the last 2 days. Related Data Home Medications Medication Instructions Recorded Confirmed carbamazepine 400 mg PO BID 05/20/21 05/20/21 lisinopril-hydrochlorothiazide 1.5 tablet PO DAILY 05/20/21 05/20/21 tizanidine 4 mg PO TID PRN 05/20/21 05/20/21 Allergies Allergy/AdvReac Type Severity Reaction Status Date / Time amoxicillin Allergy Anaphylaxis Verified 05/20/21 23:35 iodine Allergy Anaphylaxis Verified 05/20/21 23:35 latex Allergy Rash Verified 05/20/21 23:35 Penicillins Allergy Anaphylaxis Verified 05/20/21 23:35 [facility] Past Medical History Medical History (Updated 07/08/21 @ 16:16 by Khadar Alexis MD) Alcohol abuse Asthma Essential hypertension Seizures Surgical History Surgical History (Updated 05/21/21 @ 07:06 by Maryuri Gutierrez DO) No significant past surgical history Family History Family History (Updated 05/21/21 @ 07:07 by Maryuri Gutierrez DO) Grandparent Cancer Mother Hypertension Obesity Sibling Obesity Social History Social History (Updated 05/21/21 @ 07:11 by Maryuri Gutierrez DO) Social History: She lives on her own but her mother states with her intermittently. She has a small dog and 5 birds. She chews tobacco daily approximately 1/4 can. She drinks a bloody Chayo a couple of times a week and binge drinks a couple of times a month. She reports that when she does binge drink she usually drinks about a 5th of vodka or more. She uses recreational cocaine. 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 Code status: Full code Surrogate decision maker: Himanshu Linares (mother) Smokeless tobacco user: chewing tobacco Alcohol intake: current Drinks per week: 3 Substance use: current Substance use type: crack/cocaine Spiritual care concerns: No Exam Narrative: GENERAL: Intoxicated-appearing, well-nourished, and in no acute distress. HEAD: Normocephalic, atraumatic. EYES: PERRL and EOMI. ENT: Mucous membranes moist. CHEST: Clear to auscultation. No respiratory distress. HEART: Regular rate and rhythm. Normal peripheral pulses. ABDOMEN: Soft, nontender, nondistended. EXTREMITIES: Normal range of motion. No edema. SKIN: Warm, dry, no rash. NEURO: Alert and oriented x3. Course Course Emergency Course: Patient is alert and oriented x3. She appears much sober than when she had originally entered the ER. She has had no active seizure activity. She now reports that she takes Dilantin. She reports that she has full bottles at home that she can start taking. Her is present and is comfortable taking her home. Patient was ambulated and had a steady gait prior to leaving. When asked why she came in to the ER she reports that she ate some food from [employer] that gave her an upset stomach and some cramping and she wanted to come in because she thought she might have food poisoning. She no longer has this discomfort. She also becomes tearful when talking about how her brothers had moved into her home and she is now being kicked out by them in her mother. reports she does have a lot of stress. I stressed that patient should not be using
[2021-07-08 14:16] LABS: Add Urine Microscopic? YES; Appearance Urine Clear (Clear); Bacteria Urine Trace /hpf; Bilirubin Urine Negative (Negative); Blood Urine 1+ (Negative); Color Urine Straw (Yellow); Glucose Urine UA 1+ mg/dL (Negative); Ketones Urine 1+ mg/dL (Negative); Leukocyte Esterase Ur Negative LEU/UL (Negative); Mucus Urine Rare /lpf; Nitrate Urine Negative (Negative); Protein Urine Negative (Negative); RBC Urine 0-2 /hpf (0-2); Squamous Epithelial Cell Urine Few /hpf (Few); Urobilinogen Urine Negative mg/dL (<2.0); WBC Urine 0-3 /hpf
[2021-07-08 14:42] LABS: Specific Grav Ur 1.004 (1.001-1.035)
[2021-07-08 15:07] LABS: Alanine Aminotransferase 33 U/L (4-35); Albumin Level 4.8 g/dL (3.5-5.1); Alkaline Phosphatase 84 U/L (38-126); Anion Gap 22 mmol/L (8-16); Aspartate Amino Transferase 80 U/L (14-36); Bilirubin,Total 0.6 mg/dL (0.2-1.3); Blood Urea Nitrogen 9 mg/dL (7-17); Carbon Dioxide 21 mmol/L (22-30); Chloride 95 mmol/L (98-107); Estimated CRCL calculation 77 ml/min; Estimated Glomerular Filt Rate > 60; Glucose 136 mg/dL (65-110); Potassium 3.4 mmol/L (3.4-5.0); Sodium 138 mmol/L (137-145)
[2021-07-08 15:51] LABS: Ethanol > 300 mg/dL (<10)
== END 2021-07-09 02:36 | disposition home or self-care (01) ==
PROVIDERS: Emergency Provider Emergency Medicine; PCP Family Medicine
DX: R56.9 Unspecified convulsions (principal); F10.129 Alcohol abuse with intoxication, unspecified; Y90.8 Blood alcohol level of 240 mg/100 ml or more; J45.909 Unspecified asthma, uncomplicated; I10 Essential (primary) hypertension; F17.220 Nicotine dependence, chewing tobacco, uncomplicated
CPT/HCPCS: 36415; 80053; 80307; 81001; 82948; 85025; 93005; 96374; 99284

== ENCOUNTER 2022-07-10 08:58 | Emergency (ER) | payer MEDICAID, SELFPAY ==
[2022-07-10] VITALS (21 sets, daily range): BP systolic 104–146; BP diastolic 45–94; PULSE 74–107; RESP 0–25; TEMP 36.5; O2SAT 97–100
--- NOTE | ~2022-07-10 | XR_ITS ---
EXAMINATION: XR chest 1V portable DATE: 07/10/2022 09:28 INDICATION: Seizure. TECHNIQUE: A single frontal view of the chest was obtained. COMPARISON: CT abdomen and pelvis 05/20/2021 FINDINGS: There is no pneumonia, pleural effusion, pneumothorax. The heart size is normal. IMPRESSION: 1. No acute cardiopulmonary disease. Reviewed, dictated and finalized at location A. NETWORK INSTALLER
--- NOTE | 2022-07-10 09:00 | ECG_ITS ---
Measurements Intervals [place] Rate: 92 P: 68 LA: 149 QRS: 70 QRSD: 74 T: 62 QT: 363 QTc: 449 Interpretive Statements SINUS RHYTHM POSSIBLE LEFT ATRIAL ENLARGEMENT [-0.1mV P WAVE IN V1/V2] NONSPECIFIC T-WAVE ABNORMALITY ABNORMAL ECG COMPARED TO ECG 07/08/2021 13:50:36 SINUS RHYTHM NOW PRESENT T-WAVE ABNORMALITY NOW PRESENT Electronically Signed On 07-10-2022 11:26:32 COOKER OPERATOR by Lorne Jimenes M.D.
--- NOTE | 2022-07-10 09:26 | ED.SEIZURE ---
HPI - Seizure General Chief Complaint: Seizure Stated Complaint: seizure History of Present Illness HPI Narrative: Patient is a 37-year-old female with history of seizure disorder who presents ER from a local [facility] having a seizure. Apparently patient has had around 6 short seizures where she flexes on the right side and extends on the left side. The last stroke couple of seconds. Patient was arrested last night for being drunk and disorderly. She has not taken her anticonvulsants today. No additional complaints. Patient did have loss of urine. Seizure History: Yes Related Data Home Medications Medication Instructions Recorded Confirmed carbamazepine 400 mg 400 mg PO BID 05/20/21 05/20/21 tablet,extended release,12 hr lisinopril 20 1.5 tablet PO DAILY 05/20/21 05/20/21 mg-hydrochlorothiazide 25 mg tablet tizanidine 4 mg tablet 4 mg PO TID PRN Muscle Spasm 05/20/21 05/20/21 amlodipine 5 mg tablet mg 07/10/22 07/10/22 hydrochlorothiazide 25 mg tablet mg 07/10/22 phenytoin sodium extended 100 mg mg PO 07/10/22 capsule Allergies Allergy/AdvReac Type Severity Reaction Status Date / Time amoxicillin Allergy Anaphylaxis Verified 07/10/22 09:04 iodine Allergy Anaphylaxis Verified 07/10/22 09:04 latex Allergy Rash Verified 07/10/22 09:04 Penicillins Allergy Anaphylaxis Verified 07/10/22 09:04 Review of Systems Review of Systems: All systems reviewed & are unremarkable except as noted in HPI and below Constitutional: Constitutional: Denies chills, Denies fatigue and Denies fever(s) ENT: Denies nasal congestion and Denies sore throat Cardiovascular: Cardiovascular: Denies chest pain, Denies rapid heart rate and Denies radiating jaw, neck or arm pain Respiratory: Respiratory: Denies cough and Denies dyspnea Gastrointestinal: Gastrointestinal: Denies abdominal pain, Denies nausea and Denies vomiting Neurologic: Denies headache(s), Denies focal weakness and Denies numbness Comments: Seizure PMFSH Past Medical History Medical History (Updated 07/10/22 @ 13:08 by Khadar Alexis MD) Alcohol abuse Asthma Essential hypertension Seizures Surgical History Surgical History (Updated 05/21/21 @ 07:06 by Maryuri Gutierrez DO) No significant past surgical history Family History Family History (Updated 05/21/21 @ 07:07 by Maryuri Gutierrez DO) Grandparent Cancer Mother Hypertension Obesity Sibling Obesity Social History Social History (Updated 05/21/21 @ 07:11 by Maryuri Gutierrez DO) Social History: She lives on her own but her mother states with her intermittently. She has a small dog and 5 birds. She chews tobacco daily approximately 1/4 can. She drinks a bloody Chayo a couple of times a week and binge drinks a couple of times a month. She reports that when she does binge drink she usually drinks about a 5th of vodka or more. She uses recreational cocaine. 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 Code status: Full code Surrogate decision maker: Himanshu Linares (mother) Smokeless tobacco user: chewing tobacco Alcohol intake: current Drinks per week: 3 Substance use: current Substance use type: crack/cocaine Spiritual care concerns: No Exam Narrative: GENERAL: Well-appearing, well-nourished, and in no acute distress. HEAD: Normocephalic, atraumatic. EYES: PERRL and EOMI. ENT: Mucous membranes moist. CHEST: Clear to auscultation. No respiratory distress. HEART: Regular rate and rhythm. Normal peripheral pulses. ABDOMEN: Soft, nontender, nondistended. EXTREMITIES: Normal range of motion. No edema. SKIN: Warm, dry, no rash. NEURO: Alert and oriented x3. PSYCH: Normal mood and affect. Course Course Emergency Course: Phenytoin undetectable. Patient given alert. No seizure activity. Patient was also intoxicated. She does have a ride home and will be allowed to leave when they arrive. Reevaluation(s) Reevaluation #1:
[2022-07-10] MEDS: SODIUM CHLORIDE 0.9% IV 1,000 ML 999 ML IV CONT (09:35)
[2022-07-10] MEDS: PHENYTOIN SODIUM INJ (*BKC) 1,000 MG in SODIUM CHLORIDE 0.9% IV 100 ML 360 MG IVPB (09:59)
[2022-07-10 10:13] LABS: Alanine Aminotransferase 33 U/L (6-35); Albumin Level 5.1 g/dL (3.5-5.1); Alkaline Phosphatase 97 U/L (38-126); Anion Gap 19 mmol/L (8-16); Aspartate Amino Transferase 48 U/L (14-36); Basophils Absolute Auto 0.1 K/mm3 (0.0-0.1); Basophils Percent Auto 0.7 % (0.2-1.2); Bilirubin,Total 0.6 mg/dL (0.2-1.3); Blood Urea Nitrogen 8 mg/dL (7-17); Calcium 9.6 mg/dL (8.4-10.2); Carbon Dioxide 22 mmol/L (22-30); Chloride 101 mmol/L (98-107); Eosinophils Percent Auto 0.1 % (0-4.4); Estimated CRCL calculation 67 ml/min; Estimated Glomerular Filt Rate > 60; Glucose 81 mg/dL (65-110); Hemoglobin 14.4 g/dL (12.0-15.0); Immature Granulocyte Absolute 0.03 K/mm3 (0.00-0.031); Immature Granulocyte Percent A 0.3 % (0-0.5); Lymphocytes Absolute Auto 2.36 K/mm3 (0.9-3.2); Lymphocytes Percent Auto 23.3 % (18.3-44.2); Mean Corpuscular HGB Conc 33.5 g/dl (32-36); Mean Corpuscular Hemoglobin 31.3 pg (26-34); Mean Corpuscular Volume 93.5 fl (80-100); Mean Platelet Volume 10.7 fl (7.4-10.4); Monocytes Absolute Auto 0.5 K/mm3 (0.1-0.6); Monocytes Percent Auto 5.2 % (2.6-8.5); Neutrophils Absolute Auto 7.1 K/mm3 (1.3-6.7); Neutrophils Percent Auto 70.4 % (45.5-73.1); Platelet Count Result 287 k/mm3 (150-375); Potassium 3.5 mmol/L (3.4-5.0); Red Cell Distribution Width 16.2 % (11.5-14.5); Sodium 142 mmol/L (137-145); White Blood Count 10.1 K/mm3 (4.5-10.0)
[2022-07-10 10:15] LABS: Ethanol 225 mg/dL (<10)
[2022-07-10 10:31] LABS: Phenytoin Dilantin < 3 ug/mL (10-20)
== END 2022-07-10 15:52 | disposition home or self-care (01) ==
PROVIDERS: Emergency Provider Emergency Medicine; PCP Family Medicine
DX: G40.909 Epilepsy, unspecified, not intractable, without status epilepticus (principal); F10.129 Alcohol abuse with intoxication, unspecified; Y90.7 Blood alcohol level of 200-239 mg/100 ml; J45.909 Unspecified asthma, uncomplicated; I10 Essential (primary) hypertension; F17.220 Nicotine dependence, chewing tobacco, uncomplicated; R94.31 Abnormal electrocardiogram [ECG] [EKG]
CPT/HCPCS: 36415; 71045; 80053; 80185; 80307; 85025; 93005; 96365; 99284; J1165; J7030